=== PATIENT | male | born 1955 | race Caucasian/White ===

== ENCOUNTER → 2017-05-27 | Outpatient (CLI) | payer MEDICARE, MEDICAID ==
[~2017-05-27] MED LIST: ANTIVERT **IA12.5 MG PO; ASPIRIN (CHILDR81 MG PO; AUGMENTIN 875-1 EACH PO; DUONEB INH; LEVOTHROID (S112 MCG PO; LIPITOR80 MG PO; NICODERM CQ1 EAC2 TRANS; NORVASC5 MG PO; PERCOCET 5-3251 EACH PO; PROTONIX40 MG PO; SENNA S TABLET1 EACH PO; TYLENOL325 MG PO
[2017-05-27 09:17] LABS: CREATININE 1.9 mg/dL (0.6-1.3)
== END | disposition disaster alternative care site (69) ==
LOC: GLAB 08:30
PROVIDERS: Otolaryngology
DX: R22.1 Localized swelling, mass and lump, neck (principal); Z53.8 Procedure and treatment not carried out for other reasons

== ENCOUNTER → 2017-05-28 | Outpatient (CLI) | payer MEDICARE, MEDICAID | END | disposition disaster alternative care site (69) | LOC: GOPD 05-27 12:00 | DX: R22.1 Localized swelling, mass and lump, neck (principal); M47.892 Other spondylosis, cervical region | CPT/HCPCS: J2001; J7030; Q9967 ==

== ENCOUNTER 2017-05-30 03:01 | Inpatient (IN) | payer MEDICARE, MEDICAID ==
[~2017-05-30] VITALS: Ht 188 cm; Wt 106.2 kg
--- NOTE | ~2017-05-30 | ENPV ---
Carotid Duplex Study Demographics Patient Name JEROD URIARTE Date of Study 06/05/2017 Patient Number [id number] Gender Male Date of 1955 Age 61 Visit Number [id number] Height 74 Accession Number [id number] Weight 239 Referring Maira Houston Interpreting Tam Coronado MD Physician Physician Physician Ordering Physician Maira Houston Journeyman Level Acoustic Analyst Salesperson [employer] Teresita Ward RVT Moriah Gutiérrez BS, RT Conclusions Summary The right internal carotid artery has mild, 1-39%, plaque and stenosis. The right vertebral artery is present with antegrade flow. The left internal carotid artery has mild, 1-39%, plaque and stenosis. The left vertebral artery is present with antegrade flow. Procedure Type of Study: Cerebral:Carotid, Carotid Doppler Bilateral. Indications for Study:Stroke. Patient Status:Routine. Study Location:Inpatient Portable. Technical Quality:Adequate visualization. Velocities are measured in cm/s ; Diameters are measured in cm Carotid Right Measurements Carotid Left Measurements + +--------+--------+ + + + +--------+ --------+ + + !Location !PSV !EDV !Angle !%Stenosis ! !Location !PSV ! EDV !Angle !%Stenosis ! + +--------+--------+ + + + +--------+ --------+ + + !Prox CCA !66 !13 !60 ! ! !Prox CCA !59 ! 12 !60 ! ! + +--------+--------+ + + + +--------+ --------+ + + !Dist CCA !48 !11 !60 ! ! !Dist CCA !29 ! 10 !60 ! ! + +--------+--------+ + + + +--------+ --------+ + + !Prox ICA !43 !17 !60 ! ! !Prox ICA !41 ! 15 !60 ! ! + +--------+--------+ + + + +--------+ --------+ + + !Dist ICA !48 !17 !60 ! ! !Dist ICA !38 ! 15 !60 ! ! + +--------+--------+ + + + +--------+ --------+ + + !Prox ECA !66 ! !60 ! ! !Prox ECA !68 ! !60 ! ! + +--------+--------+ + + + +--------+ --------+ + + !Vertebral !21 ! !60 ! ! !Vertebral !19 ! !60 ! ! + +--------+--------+ + + + +--------+ --------+ + + !Subclavian !57 ! !60 ! ! !Subclavian !60 ! !60 ! ! + +--------+--------+ + + + +--------+ --------+ + + - There is antegrade vertebral flow noted on the right side. - There is antegrade verte bral flow noted on the left side. - Add'l Measurements:ICAPSV/CCAPSV 0.73.ICAEDV/CCAEDV 1.37. - Add'l Measurements:ICAPS V/CCAPSV 0.7.ICAEDV/CCAEDV 1.24. Signature dtt: AUSTIN GAYLE dtniall: 06/05/17 1544 Physician Self Edit
--- NOTE | ~2017-05-30 | CON ---
PATIENT'S NAME: JEROD URIARTE [facility] AGE: 61 Y [address] ROOM: [place] [id number] LOCATION: GPCU ADMIT DATE: 05/30/2017 Consultation DISCHARGE DATE: 06/06/2017 FAMILY PHYSICIAN: PHYSICIAN, NO ATTENDING PHYSICIAN: EUGENIE SALGUERO V REFERRING PHYSICIAN: Bernard Nettles MD Consult for Dr. Rao. HISTORY OF PRESENT ILLNESS: This 61-year-old gentleman is referred for rehab evaluation, was admitted with dizziness and falling with shortness of breath. No cough. No chills. No nausea. No vomiting. He denied any fevers. No direct trauma in his past history. He has extensive past history of hypothyroid. He has stopped taking his medication. Tobacco use extensively with COPD. History of low back pain status post surgery, still has some pain. History of neck pain, delayed possible surgery for neck problems. I do not know exactly what and he has no idea realistically what is going in his neck also. History of CVA and possibly TIA. Migraine. History of influenza A. History of marijuana use. Alert and oriented x3. He tells me he feels that the room is spinning and sometimes even when he is sitting in the wheelchair or a chair, he feels that he might fall. He usually will feel falling forwards. His voice is clear. Cranial nerves 2 through 12, otherwise are within normal limits except for his unsteadiness. He can move all 4 and can move them with good coordination, however, slowly and on both sides. Otherwise, he can see well. Tongue and soft palate are moving symmetrical. His voice is clear and not wet. PATIENT'S NAME: JEROD URIARTE [facility] AGE: 61 Y [address] ROOM: [address] [address] LOCATION: GPCU ADMIT DATE: 05/30/2017 Consultation DISCHARGE DATE: 06/06/2017 FAMILY PHYSICIAN: PHYSICIAN, NO ATTENDING PHYSICIAN: EUGENIE SALGUERO V Reportedly MRI on 06/05, showed a small area of acute ischemia and changes in posterior right parietal lobe. His vital signs, blood pressure 132/87, temperature 97.7, pulse 78, and respiratory rate 18. He is 5 feet 2 inches and weighs 106.2 kg. Otherwise neurologically, he is intact. Good bowel and bladder control. He is at the present time, he has no nystagmus and denied any double vision. No ringing in his ears. He has been seen also by ENT and declared that he has no problem with his ears that could cause his dizziness. MEDICATIONS: He is on the following medications. 1. NaCl 0.9%. 2. Labetalol. 3. Lipitor. 4. Antivert. 5. Levothroid. 6. Percocet. 7. Morphine sulfate. 8. Tramadol. 9. Colace. 10. Protonix. 11. Albuterol. 12. Senna. 13. Nicotine patch. 14. Aspirin. 15. Tylenol. 16. Valium. 17. Rocephin. ASSESSMENT AND PLAN: He has been not so cooperative and not wants to work with PT, OT, and Speech. He has not been doing any therapy with PT since June 03, and refuses to do so. I think this gentleman if he does not participate, we will not be able to help him much, but we will try to keep a close eye on him and I did discuss with him plan of care and why do we suggest and need to do the PT, OT, and Speech. He verbalized understanding, but I do not know if he will execute anything. I will continue his PT, OT for the time being. Already initiated. He is at risk of falling and needs to have hands-on all the time. We will put him on Gavin's knee-high with PlexiPulses or Kendalls. As I said, I will continue to watch him and re-evaluate him if he does not and could not go home safely for rehab admission. Thank you for this referral. All the above I explained in detail to him. He PATIENT'S NAME: JEROD URIARTE [facility] AGE: 61 Y [address] ROOM: [id number] [place], [place] [address] LOCATION: GPCU ADMIT DATE: 05/30/2017 Consultation DISCHARGE DATE: 06/06/2017 FAMILY PHYSICIAN: PHYSICIAN, NO ATTENDING PHYSICIAN: EUGENIE SALGUERO V verbalized understanding. MD FELIPA MALDONADO/sarah /[id number] d: 06/06/17 1526 t: 06/07/17 0723, CONSULTATION REPORT
--- NOTE | ~2017-05-30 | ESTC ---
Cardiac Perfusion Imaging Demographics Patient Name CHAPITO Momin Gender Male Patient Number [id number] Race Visit Number [id number] Ethnicity Corporate ID Room Number G6316 Accession Number [id number] Height 74 inches Date of 1955 Weight 239 pounds Interpreting Car Junior Date of study 06/04/2017 Physician Supervising /TANYA BELTRAN Technologist Cortney Rizvi APRN Ordering Physician Car Junior Stress MD phlebotomy services technician Stress ECG Reading Janene Coleman Nurse Kelli Sahu Physician NEIL RN Propanirudh Stephens RNpropulsion engineer Procedure Type: Nuclear Stress Test:Pharmacological, Lexiscan, Cardiolite Stress Test Procedure Start time: 06/04/2017 08:30 Conclusions Impression ECG portion of lexiscan stress test is clinically negative for ischemia by diagnostic criteria. Myocardial perfusion imaging is normal. The inferior wall matched defect is consistent with soft tissue attenuation. Basal septal wall with decreased perfusion at rest and stress. Overall left ventricular systolic function was normal without regional wall motion abnormalities. Calculated LVEF is 52%. There are no previous studies for comparison . Stress Protocols Resting ECG RSR with right BBB. Resting HR:61 bpm Resting BP:134/80 mmHg Stress Protocol:Pharmacologic Peak HR:87 bpm HR response: Appropriate Peak BP:121/76 mmHg BP response: Appropriate Predicted HR: 161 bpm HR/BP product:08169 % of predicted HR: 54 Reason for termination:Infusion complete ECG Findings Indeterminate ECG due to baseline abnormalities. Arrhythmias No rhythm abnormality. Symptoms Chest tightness. Dizziness. Stress Interpretation Appropriate hemodynamic response to Lexiscan. No significant ST-T wave changes with Lexiscan. ECG portion is negative for ischemia by diagnostic criteria. Stress supervision and interpretation provided by Mirian Watters APRN . Imaging Results Applied corrections - Motion correction applied High risk findings Summed scores - Summed stress score: 9 - Summed rest score: 9 - Summed difference score: 0 Stress ejection Ejection fraction:52 % EDV :99 ml ESV :48 ml Stroke volume :51 ml LV mass :137 gr Imaging Protocols Rest Stress Isotope:Tc99m Sestamibi IV Isotope: Tc99m Sestamibi IV Isotope dose:14 mCi Isotope dose:43.49 mCi Date:06/04/2017 07:19 Date:06/04/2017 09:09 Technique: SPECT Technique: Gated Supine SPECT Supine IV remains in place after procedure. Procedure Medications - Regadenoson (Lexiscan) 0.4 mg IV over 10-15 sec. I.V. 0.4 mg. Medical History Admission Data Admission date: 05/30/2017 Admission Time: 04:57 Hospital Status: Inpatient. Signatures dtt: YOKASTA SCHRADER dtd: 06/04/17 0830 Physician Self Edit
--- NOTE | ~2017-05-30 | CON ---
PATIENT'S NAME: JEROD URIARTE [facility] AGE: 61 Y [address] ROOM: [place] [address] LOCATION: GPCU ADMIT DATE: 05/30/2017 Consultation DISCHARGE DATE: FAMILY PHYSICIAN: PHYSICIAN, NO ATTENDING PHYSICIAN: EUGENIE SALGUERO V DATE OF CONSULTATION: 06/05/2017 REFERRING PHYSICIAN: Bernard Nettles MD TIME OF CONSULT: 1:05 p.m. CHIEF COMPLAINT: Vertigo, stroke. HISTORY OF PRESENT ILLNESS: This patient was admitted on 05/30/2017. The history is mostly gleaned from the chart as the patient is not a great historian. Our records show he was in the hospital back in November with a TSH of 50 and was told to continue his thyroid medication; however, he has refused taking any thyroid medication for the last month because he was tired of fighting with them about it. He presented to the ED with dizziness and passing out. He really does not give any other details. He complains of constipation, complains of decreased oral intake, but denies any nausea or vomiting. He states he does have trouble swallowing. In our emergency room, the patient was hypotensive with systolic pressures in the 80s. He was also bradycardic with heart rate in the 50s and required 10 L of mask to saturate 95%. He was also hypothermic with a temperature of 93.5. He was volume repleted, and they did a CT scan of his neck and he has been in the hospital since then with treatment of his hypothyroidism and also treatment of his swallowing and evaluation of his goiter. We are consulted for two reasons: Small cortical stroke and extreme vertigo which is limiting the patient's activity. REVIEW OF SYSTEMS: The systems were reviewed as well as we could. The patient is not a great historian. SOCIAL HISTORY: The patient smokes over a pack a day and has done so for the last 30 years. There is much evidence that the patient smokes marijuana. He does not admit to any other alcohol or drug use. FAMILY HISTORY: The patient denies any family history. PATIENT'S NAME: JEROD URIARTE [facility] AGE: 61 Y [address] ROOM: [place] [address] LOCATION: GPCU ADMIT DATE: 05/30/2017 Consultation DISCHARGE DATE: FAMILY PHYSICIAN: PHYSICIAN, NO ATTENDING PHYSICIAN: EUGENIE SALGUERO V CURRENT MEDICATIONS: The patient is not compliant with any medications that were prescribed to him. PHYSICAL EXAMINATION: VITAL SIGNS: Blood pressure is 124/62, heart rate is 72, saturations 94%, and temperature 96.2. His respirations are 16. GENERAL: This is a well-developed, well-nourished, middle-aged male who is slightly disheveled but appears in no acute distress. HEAD: Atraumatic normocephalic. LYMPHATICS: Shows no cervical lymphadenopathy. NECK: Obvious goiter palpated. No nuchal rigidity. No carotid bruits auscultated. LUNGS: Essentially clear to auscultation. HEART: S1, S2 without murmur, rub, or gallop. GI: Soft with diminished bowel sounds. NEUROLOGIC: The patient has no focal weakness. Cranial nerves 2 through 12 are generally intact. The patient's gait was not observed as he complains of extreme dizziness. No nystagmus was appreciated. Sensory intact. Motor 5/5 in upper and lower extremities. He is quite hesitant to cooperate at times. In summary, this is a gentleman with severe hypothyroidism who also has been dizzy. He also has a small cortical stroke. It is okay to work him up from a stroke perspective, although I am very suspicious that the hypothyroidism is at crux of his problem. Hypothyroidism could certainly cause the bradycardia and hypotension which led to this small, almost watershed in appearance, stroke. In addition, the hypothyroidism could certainly have something to do with his dizziness. In fact, the patient states when he does take his thyroid medication, his dizziness gets better. ASSESSMENT AND PLAN: 1. Cerebrovascular accident. Agree with stroke workup. Okay for aspirin 81 and Lipitor. We will follow up with rest of studies. MRI reviewed and does show small cortical stroke. This was discussed with the patient. 2. Vertigo. The vertigo appears to be related to his hypothyroidism. We were unable to elicit the vertigo with a modified Corby-Hallpike exam. Because the vertigo is better when he is taking his thyroid medication, it is additive support that this could be related. Of note, he has been to an ENT who states this is definitely not Meniere's disease. The plan of care was relayed with the patient. I also discussed the findings with Dr. Rao. Thank you for the opportunity to participate in this patient's care. If you have any questions, please do not hesitate to notify us. PATIENT'S NAME: JEROD URIARTE [facility] AGE: 61 Y [address] ROOM: [place] [address] [facility] ADMIT DATE: 05/30/2017 Consultation DISCHARGE DATE: FAMILY PHYSICIAN: PHYSICIAN, NO ATTENDING PHYSICIAN: EUGENIE SALGUERO APRN FOR LULU DAVIS MD PP/sarah /[id number] d: 06/05/17 2344 t: 06/16/17 1831, CONSULTATION REPORT
--- NOTE | ~2017-05-30 | ECHO ---
Transthoracic Echocardiography Report (TTE) Demographics Patient Name JEROD URIARTE Date of Study 05/30/2017 Patient Number [id number] Visit Number [id number] Date of 1955 Room Number G6202 Gender Male Number Age 61 year(s) Referring Flores Horton V Plaster Lather Kelly Guardado RDCS, Physician RVT Physician Interpreting Tho Wagner MD Electron Beam Photo Mask Maker Physician Supervising Ordering Flores Gilbert MD/MLP Physician Nurse Stress Curing Press Maintainer Conclusions Contractility Score Summary Normal Left Ventricular contractility was noted. Summary The estimated left ventricular ejection fraction is 55%. Mild, Mild to moderate concentric left ventricular hypertrophy. Diastolic assessment reveals normal relaxation. The left atrium is mildly dilated by LA volume index measurement. Mild tricuspid regurgitation by color Doppler. There is mild pulmonary hypertension. The pulmonary pressure (RVSP) is 43 mmHg. Epicardial fat pad noted. Procedure Type of Study TTE procedure:2D Echocardiogram. Procedure Date Date: 05/30/2017 Start: 08:22 AM Study Location: Inpatient Portable Technical Quality: Adequate visualization Indications:Hypotension and Bradycardia. Appropriate Use Criteria: 9 Patient Status: Routine Rhythm: Within normal limits HR: 63 bpm BP: 129/80 mmHg M-Mode/2D Measurements LV Diastolic Dimension: 5.05 cm LV Systolic Dimension: 3.87 cm LV Septum Diastolic: 1.28 cm LV Septum Systolic: 3.47 cm LV PW Diastolic: 1.31 cm AO Root Dimension: 2.9 cm Cardiac Output: 5.55 l/min AV Cusp Separation: 2.3 cm RV Diastolic Dimension: 2.63 cm LA Dimension: 3.5 cm LA volume: 59 ml IVC Inspiration: 1.43 cm LVOT: 2.3 cm RV Base: 3.82 cm LVOT VTI: 21.2 cm RV Mid: 2.7 cm LV Stroke volume: 88.04 ml RV Length: 6.69 cm TAPSE: 2.07 cm TDI-S': 14.3 cm/s Doppler Measurements AV Peak Velocity: 1.07 m/s MV Peak E-Wave: 0.67 m/s AV Peak Gradient: 4.58 mmHg MV Peak A-Wave: 0.44 m/s AV Mean Gradient: 3 mmHg MV E/A Ratio: 1.52 LVOT Peak Velocity: 0.97 m/s MV P1/2t: 54 msec TR Gradient:40.45 mmHg PV Peak Velocity: 0.88 m/s Estimated RAP:3 mmHg PV Peak Gradient: 3.08 mmHg Estimated RVSP: 43 mmHg Estimated PASP: 43.45 mmHg E' Septal Velocity: 0.07 m/s A' Septal Velocity: 0.11 m/s E' Lateral Velocity: 0.08 m/s A' Lateral Velocity: 0.07 m/s MV E/E' Ratio: 8.3 Findings Left Ventricle The estimated left ventricular ejection fraction is 60-65%. Mild, Mild to moderate concentric left ventricular hypertrophy. Diastolic assessment reveals normal relaxation. Paradoxical septal motion abnormality Right Ventricle Normal right ventricle structure and function. Left Atrium Normal left atrial size. Right Atrium Normal right atrial size. Mitral Valve Mild mitral regurgitation by color Doppler. Aortic Valve The aortic valve is moderately sclerotic. Tricuspid Valve Mild tricuspid regurgitation by color Doppler. There is mild pulmonary hypertension. The pulmonary pressure (RVSP) is 43 mmHg. Pulmonic Valve No pulmonic valve regurgitation by color Doppler. Pericardial Effusion Epicardial fat pad noted. Miscellaneous Visualized portions of the aortic root and ascending aorta appear normal in size. Pleural Effusion No evidence of pleural effusion. Contractility Score LV regional wall motion:(0-Non visualized 1-Normal 2-Hypokinesis 3-Akinesis 4-Dyskinesis 5-Aneurysm) Signature dtt: Bernard Nettles (cardio) dtd: 05/30/17 0822 Physician Self Edit
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
--- NOTE | ~2017-05-30 | PUL ---
PATIENT'S NAME: JEROD URIARTE [facility] AGE: 61 Y [address] ROOM: [address] [address] LOCATION: [facility] ADMIT DATE: 05/30/2017 Pulmonary DISCHARGE DATE: 06/06/2017 FAMILY PHYSICIAN: PHYSICIAN, NO ATTENDING PHYSICIAN: Clifford Tanner V NAME OF PROCEDURE: Overnight Pulse Oximetry DATE OF PROCEDURE: June 04 to June 05, 2017 REASON FOR EXAM: Nocturnal hypoxemia RESULTS: The test was performed on room air. The recording time and total valid sampling were 12 hours, 8 minutes, and 40 seconds. The highest pulse was 92, lowest pulse was 53, with a mean pulse of 68. The highest SpO2 was 99%, lowest SpO2 was 78%, with a mean SpO2 of 90.4%. The patient spent 3 hours, 17 minutes, and 48 seconds with SpO2 less than 89%, representing 27.1% of the total sleep time. The desaturation event index was elevated at 15.3. PHYSICIAN INTERPRETATION: The patient has evidence of significant nocturnal hypoxia and would qualify for supplemental oxygen as per Medicare criteria. However because of his severe nocturnal hypoxia with an elevated desaturation event index a sleep study is suggested at this time. MD AGUSTINA ALVARADO/anita /[id number] dtt: 06/11/17 0853 , STEVEN FERNANDEZ dtd: 06/10/17 1347
--- NOTE | ~2017-05-30 | HP ---
PATIENT'S NAME: JEROD URIARTE [facility] AGE: 61 Y [address] ROOM: [place] [id number] LOCATION: [facility] ADMIT DATE: 05/30/2017 History & Physical DISCHARGE DATE: FAMILY PHYSICIAN: PHYSICIAN, UNKNOWN ATTENDING PHYSICIAN: EUGENIE SALGUERO V DATE OF SERVICE: CHIEF COMPLAINT: Dizzy and passed out. HISTORY OF PRESENT ILLNESS: The patient is an extremely difficult and not forthcoming individual. In fact, he has refused multiple interventions in the ER. He volunteers past medical history of "thyroid problems" and has indeed not been taking his thyroid medication for the last 3 months because "he was tired of fighting with them about it." He presented to the ER today with complaints of "dizziness and passing out." He does not provide any additional details. He denies any chest pain, but does admit to constipation, decreased oral intake. No nausea or vomiting. In the ER, the patient was found to be hypotensive in the 80s/50s, bradycardic in the 50s, and hypoxic at 95% on 10 L nasal cannula. He was also hypothermic with a temperature of 93.5. The patient received 1 L of normal saline and has his blood pressure improved into 90s/50s. Of note, the patient recently had a CAT scan of his neck due to some unclear reasons and it appears that he may have had contrast-induced nephropathy with creatinine going to 1.9 from a presumed baseline of 1.3. REVIEW OF SYSTEMS: The patient is again a very difficult historian and denies any recent travel or sick contacts. SOCIAL HISTORY: The patient has been a pack-a-day smoker for the last 30 years. He is not giving out any information about alcohol or drug use. FAMILY HISTORY: The patient is not giving out any family history. CURRENT MEDICATIONS: Apparently, none. PATIENT'S NAME: JEROD URIARTE [facility] AGE: 61 Y [address] ROOM: [place] [address] LOCATION: [facility] ADMIT DATE: 05/30/2017 History & Physical DISCHARGE DATE: FAMILY PHYSICIAN: PHYSICIAN, UNKNOWN ATTENDING PHYSICIAN: EUGENIE SALGUERO V PHYSICAL EXAMINATION: VITAL SIGNS: Blood pressure is 90s/50s, heart rate is in the 50s, saturations are 92% on non-rebreather going up to 96% at that time, temperature 93.3, and respirations 16. GENERAL: Appears as a well-developed, well-nourished middle-aged male, grayish in color, but in no acute distress. NEUROLOGIC: Exam is grossly nonfocal. EYES: Exam shows pupils are equal and reactive to light. LYMPHATICS: Exam shows no cervical lymphadenopathy. ENDOCRINE: Exam shows no thyromegaly. LUNGS: Dry crackles at bases bilaterally. HEART: Rate is bradycardic and regular. GI: Abdomen is soft with diminished bowel sounds. SKIN: Exam does not demonstrate any pasquale pretibial edema. VASCULAR: A 2+ pedal pulses. PSYCHIATRIC: Reveals quite a difficult individual who is refusing multiple interventions. LABORATORY DATA: Studies from the ER are significant for EKG, which shows sinus bradycardia at 40 beats per minute with right bundle-branch block, but no overt T-wave or ST- segment abnormalities. Chest x-ray shows poor inspiratory effort, but no congestion or infiltrate. Lab results significant for potassium of 3.2, creatinine 2.2, CPK 1235, CK-MB is 8.4, troponin I is 0.180, unremarkable CBC, D-dimer is 1.75, and procalcitonin is negative. ASSESSMENT AND PLAN: This is a 61-year-old male who is being admitted with syncope, hypotension, hypoxia, and bradycardia. At this point, the patient does not appear to be in an overt shock despite his low indices. I suspect that his presentation may be related to hypothyroidism, I was reviewing his labs from December of this year does show a TSH of 15, free T4 of 0.5. At this point, TSH and T4 have been ordered and are pending. If these are indeed indicative of significant hypothyroidism, we will treat him with intravenous thyroid and restart him on oral thyroid. 1. Acute hypoxic respiratory failure. The underlying etiology for this is as of yet unclear. We will provide the patient with supplemental oxygen, but I am concerned about presence of chronic obstructive pulmonary disease in this gentleman and we will try to maintain saturations around 88% to 92%. Unfortunately, he has refused an ABG, but we may have to do that test and we will have to engage with the patient about the need for additional therapeutic and diagnostic interventions. 2. Bradycardia/troponin elevation. The patient will be monitored on telemetry. We will check serial troponins. We will get an PATIENT'S NAME: JEROD URIARTE [facility] AGE: 61 Y [address] ROOM: [id number] [place], [place] [address] LOCATION: [facility] ADMIT DATE: 05/30/2017 History & Physical DISCHARGE DATE: FAMILY PHYSICIAN: PHYSICIAN, UNKNOWN ATTENDING PHYSICIAN: EUGENIE SALGUERO V echocardiogram. At this point, the patient is not reporting any chest pain and it is unclear what is the source of his troponin elevation. We will also get a Cardiology evaluation. 3. Tobaccoism. We will provide the patient with a nicotine patch. 4. Recent workup for lymphadenopathy in his neck. We will consider ENT consultation. 5. Elevated creatinine, secondary to a presumed contrast-induced nephropathy. We will continue hydrating the patient and monitor his renal function. 6. Additional management will depend on clinical course. Time dedicated to this patient's encounter is 35 minutes. MD JASMEET BYRNE/sarah /[id number] D: [id number] T: [id number] HISTORY & PHYSICAL
--- NOTE | ~2017-05-30 | CON ---
PATIENT'S NAME: JEROD BEEBE [facility] AGE: 61 Y [address] ROOM: [place] [address] LOCATION: [facility] ADMIT DATE: 05/30/2017 Consultation DISCHARGE DATE: FAMILY PHYSICIAN: PHYSICIAN, UNKNOWN ATTENDING PHYSICIAN: EUGENIE SALGUERO V REFERRING PHYSICIAN: Bernard Nettles MD REASON FOR CONSULTATION: Dysphagia and submandibular pain. HISTORY OF PRESENT ILLNESS: Mr. Beebe presented to the emergency department via EMS for shortness of breath, loss of consciousness, and dizziness. He also had altered mental status at that time. He was taken in the emergency department and found to have elevated TSH. He has been noncompliant with his Synthroid. For the last 6 months, he has been having difficulty swallowing and bilateral submandibular lumps. These lumps are sometimes painful. He has not had a history of stones or any other head and neck cancers. He additionally has dysphagia for solids and liquids. He feels like they get stuck in his throat. He has never required a Heimlich maneuver nor had aspirations. He additionally has ear popping and ear fullness. He denies any trismus or hemoptysis. PAST MEDICAL HISTORY: Significant for hypothyroidism. SOCIAL HISTORY: The patient is a pack-a-day smoker for the last 30 years. FAMILY HISTORY: Noncontributory. MEDICATIONS: He was on Synthroid, but not compliant with his medications. REVIEW OF SYSTEMS: A comprehensive review of system was performed and negative except as noted per HPI. PHYSICAL EXAMINATION: VITAL SIGNS: Pulse 67, respiratory rate 16, saturations 92% on room air, blood pressure 105/58. GENERAL: A pleasant male, in no acute distress. Alert and oriented x3. Mood and affect are appropriate. Voice is raspy without any breathiness. HEENT: The face is symmetric without any tenderness to palpation. There are no masses palpated over the parotid glands. Eyes: The pupils are equal, round, and reactive to light. Extraocular muscles are intact. Ears: External ears are PATIENT'S NAME: JEROD BEEBE [facility] AGE: 61 Y [address] ROOM: [place] [address] LOCATION: [facility] ADMIT DATE: 05/30/2017 Consultation DISCHARGE DATE: FAMILY PHYSICIAN: PHYSICIAN, UNKNOWN ATTENDING PHYSICIAN: EUGENIE SALGUERO V normal appearing. The tympanic membranes are retracted bilaterally without any evidence of effusion. Nose: External nose has normal appearance. On anterior rhinoscopy, nasal cavity has a deviated septum and normal-appearing mucosa. Mouth: The patient is edentulous. The floor of mouth is soft. On bimanual examination of the submandibular gland, the patient has clear saliva coming from the glands bilaterally. No stones are palpated. He also has clear saliva coming out of the parotid ducts bilaterally. The patient has fairly prominent submandibular glands which are ptotic, but do not appear pathologic. NECK: No other cervical lymphadenopathy. Trachea is midline. Thyroid is without any nodularity. NEUROLOGIC: Cranial nerves 2 through 12 were grossly intact. PULMONARY: Chest rise is symmetric. No audible stridor. CARDIOVASCULAR: Pulse is regular. The patient is well perfused. REVIEW OF INVESTIGATIONS: CT scan from the was reviewed again today. It shows prominent submandibular glands, but they are homogeneous in their quality without any surrounding lymphadenopathy or sialolithiasis. PROCEDURE NAME: Flexible rhinolaryngoscopy. Indication: For hoarseness and dysphagia. The scope was passed into the left nasal passage. The patient had a deviated septum off to the left. The turbinates were not enlarged. Eustachian tubes were seen bilaterally and were normal. No masses in the fossa of Rosenmuller. Base of tongue showed some lymphoid hypertrophy which was symmetric. The epiglottis was slightly edematous, but without any erythema. Piriform sinuses were empty without any pooling of secretions. The vocal folds were edematous bilaterally and slightly erythematous. No discrete masses were seen. He had full and symmetric abduction and adduction of his vocal cords. The visualized portion of subglottis was without any masses. Overall, this is consistent with Chari's edema secondary to smoking and chronic irritation to the larynx. ASSESSMENT: 1. Severe hypothyroidism. 2. Chari's edema of the larynx. 3. Laryngopharyngeal reflux. 4. Dysphagia. PLAN: The patient has Chari's edema likely secondary to his years of smoking and chronic irritation to the vocal cords. The treatment for this is smoking cessation and proton pump inhibitor. Postop, we will start him on Protonix 40 PATIENT'S NAME: CHAPITOJEROD [facility] AGE: 61 Y [address] ROOM: [id number] [place] [id number] LOCATION: [facility] ADMIT DATE: 05/30/2017 Consultation DISCHARGE DATE: FAMILY PHYSICIAN: PHYSICIAN, UNKNOWN ATTENDING PHYSICIAN: EUGENIE SALGUERO p.o. b.i.d. Additionally, we will give him a short burst of Decadron to try to decrease any inflammation. We also recommend a speech and language pathology consultation for evaluation of his dysphagia. As for his pain in his submandibular glands, he could have a low-grade sialoadenitis of the submandibular glands. We recommend that he increase his hydration and try to stay away from caffeine and sodas. Dictated by Joseph Correa, Student, for Mikayla Frey MD MIKAYLA FREY MD DGO/modl /[id number] d: 05/31/17 1745 t: 06/03/17 1213, CONSULTATION REPORT
--- NOTE | ~2017-05-30 | ER ---
PATIENT'S NAME: JEROD URIARTE [facility] AGE: 61 Y [address] ROOM: [id number] [place] [id number] LOCATION: [facility] ADMIT DATE: 05/30/2017 ER/Outpatient Report DISCHARGE DATE: FAMILY PHYSICIAN: PHYSICIAN, UNKNOWN ATTENDING PHYSICIAN: EUGENIE SALGUERO V CHIEF COMPLAINT: Difficulty breathing and dizziness. HISTORY OF PRESENT ILLNESS: The patient arrives by ambulance from home. He was noting shortness of breath, loss of consciousness, and dizziness for them. It took them a long time to convince him to come in. EMS reports he was alternating between borderline combativeness and please to save his life. He states he has a history of hypothyroidism and IS ALLERGIC TO CODEINE. He denies any other recent new symptoms such as cough. He has been following with Dr. Fuentes recently for some lumps in his neck. He had a CT with contrast on the 27 of May, which he reports was read as normal. He denies any recent fevers, chills, cough, nausea, or vomiting. He does not take any of his thyroid medication. He does not really have a local physician. He states he is a smoker. PAST MEDICAL HISTORY, SOCIAL HISTORY, MEDICATIONS, AND ALLERGIES: Documented on the record and reviewed by me, most notable for hypothyroidism and smoking. REVIEW OF SYSTEMS: A detailed review of systems was obtained secondary to the patient's current clinical state, but no pertinent positives were obtained. PHYSICAL EXAMINATION: VITAL SIGNS: Blood pressure initially 128/74, pulse was 48, respiratory rate 26, temperature 93.5, and saturating 92.5% on 10 L by simple facemask. GCS is 15. NEURO: The patient is awake. He is alert. Follows commands in all extremities. Speech is slightly difficult to understand, but a facemask is in place. He does regard examiner appropriately. He does appear to be keen. HEENT: Normocephalic, atraumatic. Eyes are PERRL. The oropharynx is dry. NECK: Supple. Trachea is midline. CHEST: Bradycardic heart, no obvious murmurs. Lungs tight with diffuse rhonchi, wheezes throughout. ABDOMEN: Soft, nontender, nondistended. BACK: Normal to inspection and palpation. EXTREMITIES: Cool, cyanotic. No deformities. No edema. SKIN: Cool, diaphoretic diffusely. No obvious rashes or breakdown. PATIENT'S NAME: JEROD URIARTE [facility] AGE: 61 Y [address] ROOM: [id number] [place], [place] [id number] LOCATION: [facility] ADMIT DATE: 05/30/2017 ER/Outpatient Report DISCHARGE DATE: FAMILY PHYSICIAN: PHYSICIAN, UNKNOWN ATTENDING PHYSICIAN: EUGENIE SALGUERO V LABORATORY DATA AND X-RAYS: Chest x-ray was obtained, no obvious abnormalities per my review. Initial and repeat EKG shortly after arrival revealed bradycardia with too much baseline artifact to be sure of any ischemic changes. He does appear to have possible ischemic changes inferiorly; however, they are not consistent [id number]. No significant morphologic changes on repeat EKG. Head CT was delayed secondary to the patient's clinical condition. CMS: Electrolytes: Sodium 138, potassium 3.2, chloride is 103, CO2 is 26, BUN is 13, creatinine 2.2. GFR is 32. LFTs notable for an AST of 74. CRP is below detectable threshold. CPK is 1235, CK-MB is 8.4, troponin I 0.180. CRP is undetectable. Procalcitonin is below detectable threshold. Free T4 is 0.1, TSH is 245. CBC: White count was 8.8, hemoglobin 13.9, platelets of 202. D-dimer is 1.75. IMPRESSION: 1. Severe hypothyroidism. 2. Hypotension. 3. Severe hypoxia. 4. Bradycardia. 5. Acute kidney injury. 6. Elevated troponin and CK-MB. 7. Contrary patient behavior. EMERGENCY DEPARTMENT COURSE: The patient was seen and evaluated as above. He refused ABG draws. He refused blood cultures. Differential diagnosis broad including sepsis, septic shock, pulmonary embolism, heart failure, severe hypothyroidism versus myxedema coma. Other etiologies could be considered including cardiogenic shock and other intracranial process as the patient is slightly confused intermittently and does have syncope. The patient refused blood cultures and ABG. He would not allow placement of a central line. We attempted to get a head CT; however, the patient was deemed to be too unstable. He ultimately was saturating well on 6 L by simple facemask. Within 30 seconds of facemask removal, he desaturated to 90%. He was ordered 150 mcg of levothyroxine in addition to 2 L of normal saline. The patient overall did become better. Blood pressures bottomed in the low 70s/30s. They were up-trending upon transfer to the ICU floor. Dr. Salguero was able to evaluate the patient. At this time, we are attributing troponin leaks to cardiac demand from severe hypothyroidism. Dr. Salguero will assume care of the patient in the ICU. CRITICAL CARE: 35 minutes of critical care time is warranted for severe hypotension and PATIENT'S NAME: JEROD URIARTE [facility] AGE: 61 Y [address] ROOM: [id number] [place], [place] [address] LOCATION: [facility] ADMIT DATE: 05/30/2017 ER/Outpatient Report DISCHARGE DATE: FAMILY PHYSICIAN: PHYSICIAN, UNKNOWN ATTENDING PHYSICIAN: EUGENIE SALGUERO V hemodynamic instability in the setting of severe hypothyroidism. Critical care time was warranted for the patient's evaluation and reports from EMS, consult with other providers, ordering and interpreting laboratory, the patient's re-evaluation, initiating volume resuscitation, and administration of intravenous levothyroxine. All questions were answered to the best of my ability, and the patient was taken to the ICU for further evaluation and treatment. Again, the patient did refuse blood gas measurements in addition to central line should pressors become required at this time. No further questions or concerns at this time. MD SHAY POOLE/sarah /[id number] d: 05/30/17 1020 t: 06/02/17 1234, OUTPATIENT REPORT
--- NOTE | ~2017-05-30 | DS ---
PATIENT'S NAME: CHAPITO [facility] AGE: 61 Y [address] ROOM: [id number] [place], [place] [address] LOCATION: [facility] ADMIT DATE: 05/30/2017 Discharge Summary DISCHARGE DATE: 06/06/2017 FAMILY PHYSICIAN: PHYSICIAN, NO ATTENDING PHYSICIAN: Clifford Tanner V ADMITTING DIAGNOSES: Severe hypothyroidism with hypotension. DISCHARGE DIAGNOSIS: Severe hypothyroidism, improving. SECONDARY DIAGNOSES: 1. Cerebrovascular accident. 2. Mastoiditis. 3. Subdural hematoma. 4. Dizziness. 5. Tobacco abuse. 6. Chronic kidney disease stage 3. 7. Hypertension. 8. Medical noncompliance. 9. Dysphagia. 10. Chari's edema. 11. Gastroesophageal reflux disease. PROCEDURE: 1. Laryngoscopy showing Chari's edema, stress test which was unremarkable. 2. MRI of brain that showed small area of acute ischemic infarct at the posterior right of the parietal lobe. 3. MRA of the brain that showed tiny subdural hematoma peripheral to posterior inferior portion with size 2 mm. CONSULTATION: 1. Neurology. 2. Cardiology. 3. PM and R. 4. Speech Therapy. 5. Physical Therapy. HISTORY OF PRESENT ILLNESS: The patient initially was extremely difficult and not forthcoming on admission. Initially on admission, he reported some thyroid problem and has not been taking his medication. He has been having dizziness and passing out with fall multiple times. On admission, the patient was found to be hypotensive with systolic blood pressure was found in the 80s and also found to be hypoxic. Lab shows elevated TSH and elevated troponin. The patient's initial troponin was 0.18 and was trended to 3.028. The patient's TSH was 245 with low T3 and T4 level. The patient was admitted and was given PATIENT'S NAME: CHAPITO [facility] AGE: 61 Y [address] ROOM: [id number] [place], [place] [address] LOCATION: [facility] ADMIT DATE: 05/30/2017 Discharge Summary DISCHARGE DATE: 06/06/2017 FAMILY PHYSICIAN: PHYSICIAN, NO ATTENDING PHYSICIAN: Clifford Tanner V IV fluids with improvement of symptoms. HOSPITAL COURSE: The patient was admitted and was started on IV Synthroid, was given IV fluid with improvement of hemodynamics. The patient was seen by data management engineer during stay for his elevated troponin. During the stay, the patient denied of any chest pain. EKG was unremarkable. During his stay, the patient had a stress test that was unremarkable for ischemia. The patient also complained of ongoing dizziness and tinnitus and was also seen by ENT due to ongoing dysphagia. Dr. Velezs flexed laryngoscopy does show Chari's edema. Etiology most likely secondary to hypothyroidism and also GERD. The patient was placed on Protonix and was continued on Synthroid treatment. The patient's symptoms improved during his stay, however, was noncooperative with physical therapy and occupational therapy. The patient continued to have earache and fullness and also pain around his mastoid. The patient was started on antibiotics and was discharged on Augmentin for 10 days for mastoiditis and acute otitis media. Case was discussed with Dr. Razo. The patient to follow up with Dr. Razo in 2 weeks for his mastoiditis and also dizziness. MRI was acquired due to persistent headache and vertigo. MRI showed small area of acute ischemic infarct at the posterior right parietal lobe. Neurology was consulted to continue aspirin. Carotid Doppler was done, which was unremarkable. MRA of brain was done, which showed tiny subdural hematoma peripheral to the posterior inferior portion of the right cerebral hemisphere. Imaging was discussed with Dr. Singh. It was decided to continue aspirin. This hematoma most likely secondary to old fall that he experienced before he came in due to his hypotension and falls. Since the patient had a CVA and small subdural most likely old, continue his aspirin. Follow up with primary care physician with repeat CT head and also to follow up with Dr. Singh within a month. Long discussion was made about medical compliance. The patient has been noncompliant in the past and discussed with him about tobacco cessation. The patient was offered to stay at our rehab center, however, the patient refused to stay and wants to go home with home health care. The patient was discharged home with home health in stable condition. CONDITION: Stable. DISPOSITION: Home with home health. DISCHARGE MEDICATION: Please see MAR. DISCHARGE INSTRUCTION: Repeat CT head without contrast in 2 weeks. Also to follow up and continue to be compliant with medication and follow up with home health with physical therapy and shelter therapy. PATIENT'S NAME: JEROD [facility] AGE: 61 Y [address] ROOM: [id number] [place], [place] [address] LOCATION: [facility] ADMIT DATE: 05/30/2017 Discharge Summary DISCHARGE DATE: 06/06/2017 FAMILY PHYSICIAN: PHYSICIAN, NO ATTENDING PHYSICIAN: Clifford Tanner V FOLLOWUP: The patient to follow up with [facility] specialist PCP in 2 weeks, with Dr. Nettles in 2 weeks Cardiology, with Dr. Fuentes's ENT in [address] Singh in 1 month. The patient is to have repeat CT in 2 weeks. PHYSICAL EXAMINATION ON DISCHARGE: VITAL SIGNS: Temperature 98.1, pulse 75, respiratory rate 20, blood pressure 133/91. CHEST: Clear to auscultation bilaterally. HEAD: Normocephalic, atraumatic. HEART: Regular rate and rhythm. No murmurs, rubs, or gallops. ABDOMEN: Soft, nontender, and nondistended. Bowel sounds present. EXTREMITIES: No edema. CAPITAL EQUIPMENT SPECIALIST: Alert and oriented x3. Motor and sensory grossly intact. Greater than 30 minutes was spent on discharge planning. ZULMAWE MD JG PAREDES/sarah /[id number] d: 06/07/17 0439 t: 06/09/17 0615, DISCHARGE SUMMARY
[2017-05-30 03:17] LABS: BASOPHIL # 0.1 K/uL (0.0-0.2); BASOPHIL % 1.3 %; EOSINOPHIL # 0.1 K/uL (0.0-0.5); EOSINOPHIL % 1.4 %; HEMATOCRIT 41.4 % (37.0-53.0); HEMOGLOBIN 13.9 g/dL (12.0-17.0); IMMATURE GRANULOCYTE % 0.2 %; LYMPHOCYTE # 4.2 K/uL (0.8-4.0); LYMPHOCYTE % 48.1 %; MCH 32.4 pg (27.0-34.0); MCHC 33.6 gm/dL (32.0-36.5); MCV 96.5 fl (83.0-98.0); MONOCYTE # 0.3 K/uL (0.0-1.0); MONOCYTE % 3.3 %; MPV 10.2 fl (9.4-12.4); NEUTROPHIL % 45.7 %; NRBC % 0 /100WBC (0-0.00); PLATELET COUNT 202 K/uL (150-450); RBC 4.29 M/uL (4.00-6.00); RDW-CV 13.2 % (11.9-14.6); WBC 8.8 K/uL (4.0-11.0)
[2017-05-30 03:36] LABS: ALBUMIN 3.6 gm/dL (3.5-5.0); ALK PHOS 91 IU/L (33-138); ALT 55 IU/L (12-78); ANION GAP 12.2 (10.0-19.0); AST 74 IU/L (10-40); BLOOD UREA NITROGEN 13 mg/dL (6-24); CALCIUM 8.3 mg/dL (8.5-10.5); CHLORIDE 103 mMol/L (96-110); CO2 26 mMol/L (22-32); CREATININE 2.2 mg/dL (0.6-1.3); POTASSIUM 3.2 mMol/L (3.7-5.1); SODIUM 138 mMol/L (135-145); TOTAL BILIRUBIN 0.6 mg/dL (0.0-1.5); TOTAL PROTEIN 6.3 g/dL (6.0-8.4)
[2017-05-30 03:47] LABS: CPK 1235 IU/L (35-332)
--- NOTE | 2017-05-30 10:22 | NUR ---
0825 TECH PRESENT TO DO ECHO.
--- NOTE | 2017-05-30 17:39 | NUR ---
PATIENT HAS BEEN STABLE. BLOOD PRESSURE HAVE BEEN STABLE WITH MAP ABOVE 65. PATIETN HAS ECHO THIS MORNING AND EKG THIS AFTERNOON. HEPARIN DRIP STARTED PER PROTOCOL. POTASSIUM WAS LOW AND ADDRESSED WITH PO MEDICATION. PATIENT HAS BEEN WEENED FROM O2 FROM 4LITERS @ 0600 TO 1 LITER. HE HAS EATEN TWO MEALS TODAY. HE HAS REFUSED COLACE AT ONE POINT BUT ACCEPTED HIS NICOTINE PATC,K, AND ASPIRIN. THYROID IS BEING ADDRESSED BY MEDICATION AND LABS WILL BE DRAW AGAIN ON 06/02. VOIDS TO URINAL EVERY FEW HOURS WITH NO ISSUE. NO BOWEL MOVEMENT. TURNS SELF IN BED INDEPENDENTLY AND REFUSED A SHOWER TODAY.
--- NOTE | 2017-05-31 04:53 | NUR ---
Significant Event: PT INTACT NEUROLOGICALLY. SINUS ARRHYTHMIA NOTED, RATES 60S-80S WHILE AWAKE, 50S-60S WHILE ASLEEP. HYPOTENSIVE WHILE ASLEEP BUT QUICKLY RECOVERS WITH STIMULATION. AFEBRILE. REMAINS ON 1L NC, SATS LOW TO MID 90S. TOLERATING PO INTAKE WELL, NO BM THIS SHIFT, REFUSED COLACE AND SENNA. APPROPRIATE UOP. Follow up: TRANSFER TO PCU Trino DE JESUS RN
[2017-05-31 05:24] LABS: ALBUMIN 3.2 gm/dL (3.5-5.0); ANION GAP 10.9 (10.0-19.0); CALCIUM 8.4 mg/dL (8.5-10.5); CREATININE 1.5 mg/dL (0.6-1.3); MAGNESIUM 1.9 mg/dL (1.8-2.6); PHOSPHORUS 2.6 mg/dL (2.5-4.9); POTASSIUM 3.9 mMol/L (3.7-5.1)
--- NOTE | 2017-05-31 17:11 | NUR ---
PT A/OX3, DENIES ANY N/T NOR ANY WEAKNESS. VSS, AFEBRILE, NSR, PULSES 1+ T/O, NO EDEMA. LS C/D, ON RA WITH SATS UPPER 90'S, DENIES CP, JOHNSON, OR ANY SOB. UP AD CASSI TO BR, BM X1, NORMAL ORAL INTAKE WITHOUT ANY N/V, USES URINAL AND IN ROOM BR TO VOID. HEAD DRSG WITH SCANT SHADOW DRNG. NORCO GIVEN EARLY AFTERNOON FOR SLIGHT H/A WITH RELIEF. WALKED MULTIPLE TIMES IN THE [place] WITHOUT DIFFICULTIES. PIV X1 S.L.
--- NOTE | 2017-05-31 17:14 | NUR ---
PT A/OX3, DENIES ANY N/T NOR ANY HEADACHE, C/O SLIGHT WEAKNESS AND DIZZINESS UPON RISING AND STANDING FOR LONG PERIOD OF TIME. DENIES AND C/P, PULSES 2+ T/O, NO EDEMA, AFEBRILE, NSR WITH HR 60-70'S. SBP 90-130'S, LS C/D ON RA WITH ALBUTEROL TRX X1 D/T PT C/O WHEEZING AND CONGESTION. ENT AT BEDSIDE IN AM AND DID FLEXIBLE LARYNGOSCOPE EXAM WITH PPI ORDERED, EXAM UNIMPRESSIVE, AND SPEECH THERAPY CONSULTED WITH POSSIBLE MBS TOMORROW D/T PT TROUBLES SWALLOWING. CONT ON STEROID THERAPY AND POSSIBLE STRESS TEST IN THE FUTURE. HEPARIN GTT AT 1000U/HR WITH NEXT PTTHP 0400 D/T THERAPEUTIC FOR 24HR-48HR IN THE HIGH 60'S. L) WRIST PIV. USES URINAL AND UP TO BR WELL WITH SLIGHT DIZZINESS, BUT SUBSIDED QUICKLY. NO BM, NO N/V, GAVE COLACE PER PT REPORT.
--- NOTE | 2017-06-01 04:13 | NUR ---
Patient A/Ox3. VSS on RA. UP standby assist. Lungs clear/diminished. Bowel sounds present, NO BM since 05/29, on stool softeners. Heparin gtt at 1000units/hr. Speechs has seen and recommended MBS. Also needs a stress test. NPO per nursing until they figure out what their plans are for today.
[2017-06-01 04:39] LABS: ALBUMIN 3.4 gm/dL (3.5-5.0); ANION GAP 13.7 (10.0-19.0); CALCIUM 8.6 mg/dL (8.5-10.5); CREATININE 1.5 mg/dL (0.6-1.3); MAGNESIUM 1.8 mg/dL (1.8-2.6); PHOSPHORUS 2.2 mg/dL (2.5-4.9); POTASSIUM 3.7 mMol/L (3.7-5.1)
--- NOTE | 2017-06-01 17:09 | NUR ---
PATIENT WENT DOWN FOR A MODIFIED BARIUM SWALLOW AT 1230 TODAY HE HAS BEEN CLEARED TO EAT REGULAR TEXTURE AND THIN LIQUIDS. PATIENT HAS BEEN MUCH MORE PLEASANT THIS AFTERNOON AFTER ABLE TO EAT.
--- NOTE | 2017-06-02 07:04 | NUR ---
Significant Event: Patient alert and oriented x3. Vital signs stable. On RA-2L O2. Patient complained of dizziness and headache with beginning of shift. O2 sats mid-90%s. Place 1L O2 for comfort with relief. Patient began complaining of neck/back pain. Stated has had pain entire hospital stay but didn't want to "compromise fixing my heart" so didn't say anything. Only pain med at time was Tylenol. RN attempted to give, patient refused. Stated, "I don't want that aspirin sugary ibuprofen." Continued to refuse and talk over RN when tried to educate. Continued to rate pain as 12/10 while resting in bed and laughing with TV. RN gave 1mg Morphine per Dr. Willis orders. Patient upset when RN reassessed. Stated "It didn't do anything. It was supposed to knock me out. I might as well have taken the Tylenol." RN tried to educate about safety and dosages, patient stated "I need to be knocked out for my pain to go away. Its bull... that I can't get what I ask for here. If I was at home I would smoke a bowl and be pain free." RN gave 25mg Tramadol per Dr. Willis orders. Patient upset again with reassessment. Continued to rate pain as 12/10 and "needing to be knocked out." Patient then asked for another Mountain Dew. RN suggested water, educating about caffiene intake and inability to sleep. Patient refused anything but pop and stated "I know my body. Pop isn't why I can't sleep. I'll have my son sneak me some in if I don't get any, like I was going to do with food earlier." Patient continually asked RN for "a smile" before leaving the room. Left forearm PIV saline locked. Up with stand-by assist. Follow Up: Will continue to monitor per plan of care
--- NOTE | 2017-06-02 16:11 | NUR ---
Consult from Helene Coronel to see Luís re:beds and medication assistance. I stopped into Luís room. Talked with him about his bed situation. He tells me right now he sleeps on a couch as his bed was taken away because of bed bugs and he would really like a hospital bed. I told him that a hospital bed would have to be ordered by a doctor and he would have to go to a DME here in town to see if he meets criteria to get one at home & have insurance pay for it. Gave him a list of DME companies her in town so he could look into this more if he could get a doctor here to write him a script for a hospital bed. I also talked with him about other resources to find just a regular bed as well. Told him to try [facility] [employer], [facility] etc. to see if he might be able to find one there. Also encourage him to look or have his friends/family look for one for him as well online on Facebook or other places around [facility]. We also discussed his medications. At home prior to coming in, he states he wasn't on any but he was supposed to have a nebulizer machine with treatments he just hadn't got one because he couldn't pay for it. In reviewing his insurance it appears that he has Medicare AB and Medicaid supplement so it shouldn't cost him much to get. I looked up how much one might cost at [facility] and it wasn't more than $30. I shared this with him and he tells me that he doesn't even have $30 extra to pay for it if he needs it. Asked him how much he gets a month for disability/social security. He tells me he gets over $800 a month but "spends most of it on rent, groceries and other things that I need to get by." Encouraged him to try to save some money to pay for the machine or see if he could have a friend or family member loan him the money to get it and then repay them next month. He says he will see what he can do. He also says he would like to have HHC come in to help him cook/clean and other things around his house. I let him know that [facility] doesn't do those type of things, he would need to have a caregiver come and do that which is an out of pocket expense to him. He tells me to just "Skip it then I don't have money for that." Offered HHC to him for PT/OT services, but he once again denies stating that,"Once I get home and out of this bed I"ll be fine." He denied any other questions, needs or concerns. I phoned Mirian Coronel and updated her to the above so she was aware that I met with patient and answered his questions.
--- NOTE | 2017-06-02 16:21 | NUR ---
Significant Event: A&O. VSS, AFEBRILE, SATS 92-97% ON ROOM AIR BUT REQUESTS O2 FOR COMFORT AT TIMES, RT CALLED FOR PRN TX. REPORTS SOB AT REST BUT LUNGS CLEAR/DIM. MOIST NON-PRODUCTIVE COUGH NOTED. NECK EDEMA PRESENT. 325 URINE OUTPUT. POOR INTAKE, REFUSED MEALS, ATE SMALL AMT FOR LATE LUNCH. REFUSED PHYSICAL THERAPY OR ANY AMBULATION. GAVE 2MG MORPHINE X1 WITH NO RELIEF, REFUSED PERCOCET. REPORTS FEELING DIZZY AT ALL TIMES, CONGESTION & SINUS PRESSURE. Follow up: DC TO HOME TOMORROW?
--- NOTE | 2017-06-03 04:49 | NUR ---
Significant Event:A/Ox3. VSS on RA. Re-initiated oxygen to 2L per patient request and to maintain sats while sleeping. RN and patient had a long discussion about his chronic back and neck pain. Patient does not like taking medications, at home to relieve his pain he "smokes a bowl". Patient understands that this can not happen here and we are doing whatever we can to manage his pain. All night he has stated that his pain is managable. Refused to get out of bed, stating that he doesn't feel well and gets dizzy. I explained that he needs to do PT if he wants to get back home, and he said "maybe tomorrow". Patient is very EEK but reads lips when people talk, had no problems with communication. Follow up:Per progress notes stress test prior to discharge??
[2017-06-03 12:02] LABS: BASOPHIL % 0.1 %; EOSINOPHIL % 0.3 %; HEMATOCRIT 43.3 % (37.0-53.0); HEMOGLOBIN 14.3 g/dL (12.0-17.0); IMMATURE GRANULOCYTE % 0.4 %; LYMPHOCYTE # 2.5 K/uL (0.8-4.0); LYMPHOCYTE % 34.1 %; MCV 96.9 fl (83.0-98.0); MONOCYTE # 0.4 K/uL (0.0-1.0); MONOCYTE % 5.5 %; MPV 10.2 fl (9.4-12.4); NEUTROPHIL # (ANC) 4.4 K/uL (1.4-9.0); NEUTROPHIL % 59.6 %; NRBC % 0 /100WBC (0-0.00); PLATELET COUNT 187 K/uL (150-450); RBC 4.47 M/uL (4.00-6.00); RDW-CV 13.3 % (11.9-14.6); WBC 7.3 K/uL (4.0-11.0)
--- NOTE | 2017-06-03 16:57 | NUR ---
A - PT SCREENED D/T EARLY LENGTH OF STAY TO HAVE STRESS TEST TOMORROW. NO TEETH. PT REPORTED TROUBLE SWALLOWING DUE TO ?THYROID ISSUE. ST CONSULT 06/03? HT: 187.96 CM, WT: 239#, BMI: 30.7, IBW: 86 KG, %IBW: 126% LABS: GLU 109, CREA 1.5, ALB 3.4, PO4 2.2, A1C 6.1% MEDS: REVIEWED. DIET: CARDIAC. INTAKE 31% X9 MEALS. WAS CONSUMING 75-100% 05/31-06/01, REFUSED 3 MEALS 06/02. HAD 50% X1 MEAL TODAY PER PT. FINALLY HAD BM TODAY. REPORTED TROUBLE SWALLOWING SO NO APPETITE. OFFERED ORAL SUPPLEMENT/SNACK, DECLINED ORAL SUPPLEMENT, OKAY W/ SNACK. NPO 06/04 FOR STRESS TEST. EST NEEDS: [id number] KCAL (25-30 KCAL/KG IBW), 86-103 GRAMS PROTEIN (1-1.2 GRAMS/KG IBW), FLUID NEEDS: 1ML/KCAL. D - INADEQUATE ORAL INTAKE RELATED TO DECREASED APPETITE SECONDARY TO TROUBLE SWALLOWING PER PT EVIDENCED BY PO 31% X9 MEALS. I - PT AGREED TO TRY HIGH PROTEIN SNACK BID AND MAGIC CUP ONCE DAILY. M/E - GOAL: PT WILL BE ABLE TO TOLERATE >50% OF MEALS AND AT LEAST ONE SNACK PER DAY IN 4-6 DAYS.
--- NOTE | 2017-06-03 19:00 | NUR ---
Significant Event: A/OX3. SBP- 130-140s. P-70-90s. Afebrile. Room air with saturations in the low to mid 90s. Lungs clear/dim. R) FA IV saline locked. Patients states pain in tolerable and refused pain medications. Up with SBA-1a/walker. Refused PT/OT at times. Patient get axnious and irritable at tiems. Patient states he is still very dizzy when he stands up. Voids per urinal. 2 BM this shift. Patient states he had lost alot of blood. He stated it was bright red. He had a HX of hemmhroids. Need hematest x1. Lexiscan in AM. NPO after midnight.
--- NOTE | 2017-06-04 04:31 | NUR ---
Significant Event: PATIENT HAS BEEN COOPERATIVE THIS SHIFT AND NOT IRRITABLE AT ALL. ALL VSS, WAS PUT ON 3L PER PATIENT REQUEST AND HOME ORDERS. 2 TYLENOL GIVEN FOR HEADACHE AT 2114. HAS BEEN NPO SINCE MIDNIGHT FOR LEXISCAN THIS AM. HE HAS STATED MULTIPLE TIMES THAT IS NOT GOING TO EAT OR DRINK ANYTHING UNTIL THE PROCEDURE IS FINSIHED AND HE CAN HAVE HAVE CAFFEINATED COFFEE. Follow up:
--- NOTE | 2017-06-04 12:30 | NUR ---
Update from nursing rounds this morning that Luís was going to get an overnight trendox done this evening and then he would probably dismiss tomorrow. Let them know that from CM standpoint, his plan was home with no other needs identified. CM to continue to follow and assist. Plan home on Thursday.
--- NOTE | 2017-06-04 16:52 | NUR ---
Significant Event: A/XO3, VSS ON ROOM AIR. NO COMPLAINTS OF PAIN. PT. GETS UP 1 ASSIST WHEN UP, REPOSITIONS SELF IN BED. PT. REFUSES TO WORK WITH PT/OT D/T DIZZINESS. DOWN TO MRI OF BRAIN. STRESS TEST DONE TODAY, AWAITING RESULTS. OVERNIGHT TREND OXIMETRY TONIGHT. POSSILBE D/C TO HOME IN AM. SLIV TO L)FA. PT. IS HARD OF HEARING. Follow up: CONTINUE WITH POC.
[2017-06-05 03:49] LABS: ALBUMIN 3.6 gm/dL (3.5-5.0); ANION GAP 9.8 (10.0-19.0); CALCIUM 8.9 mg/dL (8.5-10.5); CREATININE 1.6 mg/dL (0.6-1.3); MAGNESIUM 2.2 mg/dL (1.8-2.6); PHOSPHORUS 4.8 mg/dL (2.5-4.9); POTASSIUM 3.8 mMol/L (3.7-5.1)
--- NOTE | 2017-06-05 06:43 | NUR ---
Significant Event: PT RESTED WELL, AND HAD FORGOTTEN THAT HE HAD ALREADY BEEN TO MRI FOR SCAN. RE-ORIENTED PT OF EVENTS. GIVEN FIRST DOSE OF ANTIVERT WITH EVENING MEDICATIONS. PT UNABLE TO TELL IF IT MAKES ANY DIFFERENCE WHILE IN BED. OVER NIGHT TREND OX COMPLETED. NOTED TO HAVE SATS LOW 83% ON ROOM AIR WITH SLEEP. SATS DO COME BACK UP TO > 90% WHILE AWAKE ON THE ROOM AIR. NO PAIN MEDICATIONS GIVE. PT STATES PAIN IS TOLERABLE. D/C PAPERWORK PRINTED. PT DID CALL HIS SON AND LET HIM KNOW OF POSSIBLE D/C TO HOME TODAY. WILL NEED TO GIVE SON 2 HOURS LEAD TIME FOR D/C, HE IS WORKING OUT OF TOWN. Follow up: POSSIBLE D/C HOME TODAY
--- NOTE | 2017-06-05 19:12 | NUR ---
Significant Event: Patient A/O x 3. Refused to get out of bed all shift. VSS on RA. Started stroke scale this shift and scored a 1. Had a MRA done at 1730 and results still pending. Equal strength bilaterally and no facial droop noted. Reports continued vertigo. Given meclazine at 1715. LFA PIV SL. Gave one dose of IV rocephin today. Denies any other needs today. Continued encouragement to participate in therapies and increase PO intake. Follow up: Continue as per plan of care. Monitor neuro status and vertigo.
--- NOTE | 2017-06-06 03:42 | NUR ---
A&Ox3 THIS SHIFT. NO C/O OF PAIN. CON'T TO C/O OF DIZZINESS AND REFUSES TO AMBULATE. VSS. TITRATED UP TO 2L AT NOC TO KEEP SATS GREATER THAN 90. 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 MD IS AWARE. NTU NURSE TO FLOOR TO ASSESS STROKE SCALE. C/O NUMBNESS AND TINGLING THROUGHOUT BODY TO NTU RN. NTU RN REPORTS SHE IS UNSURE OF HOW ACCURATE SCORE IS PATIENT WAS DROWSY AND SOMEWHAT UNCOOPERATIVE. R) WRIST IV SL. FLUSHES FINE. VOIDS PER URINAL. RESTS QUIETLY MOST OF NOC. NO C/O TROUBLE SWALLOWING WITH PILLS.
[2017-06-06 04:53] LABS: ALBUMIN 3.6 gm/dL (3.5-5.0); ANION GAP 10.4 (10.0-19.0); CALCIUM 8.6 mg/dL (8.5-10.5); CREATININE 1.4 mg/dL (0.6-1.3); MAGNESIUM 2.3 mg/dL (1.8-2.6); PHOSPHORUS 3.8 mg/dL (2.5-4.9); POTASSIUM 3.4 mMol/L (3.7-5.1)
--- NOTE | 2017-06-06 11:00 | NUR ---
A - CONSULT RECEIVED PER STROKE PROTOCOL. NUT F/U. SDH NOTED YESTERDAY. PT REFUSED MEALS PRIOR TO LEXISCAN. PT DOES NOT WANT ONS. DECREASED APPETITE. 05/30 WT 246#, 06/06 234# - DOWN 12# (4.8%). LABS: K+ 3.4, BUN/CR 16/1.4, CHOL 236, TRIG 198, HDL 70, LDL 127. MEDS: SYNTHROID, PROTONIX. DIET: CARIDAC. INTAKE: REF x 3, 75% x 1. SF PUDDING @ B, SNACK @ L, MAGIC CUP @ D. NEEDS: [id number] KCAL, 86-103 G PRO D - INADEQUATE NUTRIENT INTAKE R/T DECREASED APPETITE, TESTING AEB INTAKE RECORD, PT REFUSAL OF MEALS PRIOR TO LEXISCAN. I - GOAL FOR INTAKE 50-75% BY NEXT ASSESSMENT. WILL CHANGE PUDDNIG TO MAGIC CUP D/T WT LOSS. WILL PROVIDE DIET ED APPROPRIATE PRIOR TO DC. M/E - WILL MONITOR INTAKE, WT. F/U IN 3-5 DAYS.
[2017-06-06] MEDS ORDERED: ASPIRIN (CHILDR81 MG PO (15:45)
[2017-06-06] MEDS ORDERED: LIPITOR80 MG PO (15:46)
[2017-06-06] MEDS ORDERED: LEVOTHROID (S112 MCG PO (15:47)
[2017-06-06] MEDS ORDERED: NICODERM CQ1 EAC2 TRANS (15:48)
[2017-06-06] MEDS ORDERED: PROTONIX40 MG PO (15:49)
[2017-06-06] MEDS ORDERED: SENNA S TABLET1 EACH PO (15:50)
[2017-06-06] MEDS ORDERED: TYLENOL325 MG PO (15:51)
[2017-06-06] MEDS ORDERED: ANTIVERT **IA12.5 MG PO (15:52)
[2017-06-06] MEDS ORDERED: DUONEB INH (15:53)
[2017-06-06] MEDS ORDERED: AUGMENTIN 875-1 EACH PO (15:55)
[2017-06-06] MEDS ORDERED: PERCOCET 5-3251 EACH PO (15:56)
[2017-06-06] MEDS ORDERED: NORVASC5 MG PO (15:58)
--- NOTE | 2017-06-06 17:46 | NUR ---
PATIENT A/OX3, VSS ON ROOM AIR. NO COMPLAINTS OF PAIN. NEW MEDICATIONS, DISMISSAL INSTRUCTIONS GONE OVER WITH PATIENT AND FAMILY, NO FURTHER QUESTIONS AT THIS TIME. PT. UNDERSTANDS THAT HE HAS TO MAKE F/U APPOINTMENTS AND ESTABLISH A PRIMARY CARE DOCTOR HERE IN [place]. IV TO LEFT FOREARM REMOVED WITHOUT DIFFICULTLY. PT. GETS UP 1 ASSIST WITH GAIT BELT/CANE TO BATHROOM, NO BM TODAY, VOIDS FINE IN URINAL. REFUSED ALL THERAPIES AGAIN TODAY. ALL BELONGINGS SENT HOME WITH FAMILY AND PATIENT.
== END 2017-06-06 16:26 | disposition home health service (06) | DRG 643 ==
LOC: GMED 03:01 → GICU 04:57 → GPCU 04:57 → GICU 05-31 11:59 → GPCU 06-01 02:09
PROVIDERS: Emergency Medicine; Internal Medicine; ADMIT Internal Medicine
DX: E03.9 Hypothyroidism, unspecified (principal); J96.01 Acute respiratory failure with hypoxia; I21.4 Non-ST elevation (NSTEMI) myocardial infarction; I63.9 Cerebral infarction, unspecified; G93.40 Encephalopathy, unspecified; I24.9 Acute ischemic heart disease, unspecified; T68.XXXA Hypothermia, initial encounter; N17.9 Acute kidney failure, unspecified; T38.1X6A Underdosing of thyroid hormones and substitutes, initial encounter; N18.3 Chronic kidney disease, stage 3 (moderate); G47.34 Idiopathic sleep related nonobstructive alveolar hypoventilation; I12.9 Hypertensive chronic kidney disease with stage 1 through stage 4 chronic kidney disease, or unspecified chronic kidney disease; J38.3 Other diseases of vocal cords; J38.4 Edema of larynx; J44.9 Chronic obstructive pulmonary disease, unspecified; T50.8X1A Poisoning by diagnostic agents, accidental (unintentional), initial encounter; K21.9 Gastro-esophageal reflux disease without esophagitis; H66.90 Otitis media, unspecified, unspecified ear; H70.90 Unspecified mastoiditis, unspecified ear; F17.210 Nicotine dependence, cigarettes, uncomplicated
CPT/HCPCS: A9500; J0696; J1644; J1720; J2001; J2060; J2270; J2785; J7030; J7040; J7050; Q9967

== ENCOUNTER → 2017-05-30 | Outpatient (CLI) | payer MEDICARE, MEDICAID | END | disposition disaster alternative care site (69) | LOC: GAMB 02:24 | DX: R06.9 Unspecified abnormalities of breathing (principal); R07.9 Chest pain, unspecified; R42 Dizziness and giddiness; R06.02 Shortness of breath; R06.2 Wheezing; R00.1 Bradycardia, unspecified; Z79.899 Other long term (current) drug therapy; Z88.5 Allergy status to narcotic agent | CPT/HCPCS: A0422; A0425; A0427 ==